=== PATIENT | male | born 1985 | race Caucasian/White ===

== ENCOUNTER → 2024-03-28 | Emergency (ER) | payer SELFPAY ==
[~2024-03-28] VITALS: Ht 185.4 cm; Wt 90.7 kg
[~2024-03-28] MED LIST: ACETAMINOPHEN 325 MG TABLET ONE; LIDO30AD10 TP; [UNRECOGNIZED DRUG - CODE] TP
[2024-03-28] MEDS: IBUPROFEN 400 MG TABLET PO ONE (14:32)
[2024-03-28] MEDS: ACETAMINOPHEN 650 MG/20.3 ML UDC PO ONE (14:32)
[2024-03-28 14:56] VITALS: BP 128/80; TEMP 98.9; O2SAT 96
== END | disposition home or self-care (01) ==
LOC: ER 14:00
DX: M54.50 Low back pain, unspecified (principal)